=== PATIENT | male | born 1945 ===

== ENCOUNTER → 2018-03-13 09:20 | Outpatient (CLI) | payer OTHER | END | disposition home or self-care (01) | LOC: RAD 09:20 | DX: N47.1 Phimosis (principal) ==

== ENCOUNTER 2018-03-19 10:00 | Outpatient (CLI) | payer OTHER | END 2018-03-19 15:06 | disposition home or self-care (01) | LOC: EKG 10:00 → LAB 10:00 → EKG 15:06 | DX: I10 Essential (primary) hypertension (principal) ==